=== PATIENT | male | born 2000 | race Two or more races ===

== ENCOUNTER 2021-09-11 11:36 | Emergency (ER) | payer OTHER ==
[2021-09-11 12:06] VITALS: BP 138/73; PULSE 74; TEMP 98.6; BMI 25.0
[2021-09-11] MEDS ORDERED: KETOROLAC TROMETHAMINE 30 MG/1 ML VIAL IM ONE (12:30)
[2021-09-11] MEDS ORDERED: KETOROLAC TROMETHAMINE 30 MG/1 ML VIAL ONE (12:37)
== END 2021-09-11 13:48 | disposition home or self-care (01) ==
LOC: JERFT 11:36
PROC: 3E0233Z Introduction of Anti-inflammatory into Muscle, Percutaneous Approach (ICD-10-PCS; principal; 2021-09-11)
DX: M25.511 Pain in right shoulder (principal)
CPT/HCPCS: 73030-TC-RT-FY; 99283-25